=== PATIENT | male | born 1995 | race Caucasian/White ===

== ENCOUNTER 2022-05-08 15:08 | Emergency (ER) | payer SELFPAY ==
[2022-05-08] MEDS ORDERED: Lidocaine 1% with EPINEPHrine 1:100,000 10 ML MDV INFILT ONE (15:09)
== END 2022-05-08 17:15 | disposition home or self-care (01) ==
LOC: FB.ED 15:08
DX: S06.2X9A Diffuse traumatic brain injury with loss of consciousness of unspecified duration, initial encounter (principal); Z88.2 Allergy status to sulfonamides
CPT/HCPCS: 12002; 70450; 72125; 99284-25